=== PATIENT | male | born 1965 | race Caucasian/White ===

== ENCOUNTER 2017-06-26 12:55 | Emergency (ER) | payer OTHER, SELFPAY ==
[~2017-06-26] VITALS: Ht 188 cm; Wt 90.0 kg
[2017-06-26] MEDS ORDERED: THIAMINE 100 MG/ML, 2ML IM ONE (13:30)
[2017-06-26] MEDS ORDERED: PLEASE ENTER ALLERGIES MC SCH ×2 (13:30)
[2017-06-26] MEDS ORDERED: THIAMINE 100 MG/ML, 2ML ONE (13:45)
[2017-06-26] MEDS ORDERED: THIA50TA2 PO (14:37)
[2017-06-26] MEDS ORDERED: MULT-717 PO (14:37)
[2017-06-26] MEDS ORDERED: NIAC10002 PO (14:37)
[2017-06-26 16:00] VITALS: BP 110/60
== END 2017-06-26 16:11 | disposition home or self-care (01) ==
LOC: ED 16:00
DX: F10.120 Alcohol abuse with intoxication, uncomplicated (principal)
CPT/HCPCS: 96372; 99283; J3411